=== PATIENT | female | born 1980 | race Caucasian/White ===

== ENCOUNTER 2016-09-19 19:38 | Emergency (ER) | payer OTHER ==
[2016-09-19] MEDS ORDERED: 0.9 % SODIUM CHLORIDE 1,000 ML IV ONE (20:24)
[2016-09-19] MEDS ORDERED: KETOROLAC TROMETHAMINE 30 MG/1ML VIAL IVP ONE (20:24)
--- NOTE | 2016-09-19 21:42 | ED Physician Documentation ---
Female Urogenital Problems - HISTORIAN Historian: patient - HPI Stated Complaint: poss uti Chief Complaint: Female Urogenital Problems Onset: days ago (yesterday) Further Comments: yes (36 year old female patient presents with complaint of dysuria and bilteral flank pain. Patient states she started cipro for a UTI on 09/14, second round. Reports episode last night in the shower of severe 10/10 pain of flank pain radiating around side to groin. Patinet concerned her UTI is getting worse.) - Vaginal Bleeding Sexual History: active Contraceptive: IUD - Associated Symptoms Urinary Symptoms: discomfort w/ urination, pain w/ urination - ROS CONST: none GI/: nausea. denies: vomiting CVS/RESP: none EYES/ENT: none NEURO/PSYCH: none MS/SKIN/LYMPH: none - PAST HX Past History: none Surgeries/Procedures: Allergies/Adverse Reactions: Allergies Allergy/AdvReac Type Severity Reaction Status Date / Time codeine Allergy Intermediate Rash Verified 09/19/16 20:04 Home Medications: Ambulatory Orders Medication Instructions Recorded Cetirizine HCl [Zyrtec] 10 mg PO D 09/19/16 Phenazopyridine HCl [Pyridium] 200 mg PO TID #6 tablet 09/19/16 - SOCIAL HX Smoking History: cigarettes - FAMILY HX Family History: none - VITAL SIGNS Vital Signs: Vital Signs Temp Pulse Resp BP Pulse Ox 98.2 F 79 14 99 09/19/16 19:39 09/19/16 19:39 09/19/16 19:39 09/19/16 19:39 - REVIEWED ASSESSMENTS Nursing Assessment Reviewed: Yes Vitals Reviewed: Yes Progress - Progress Progress: UA with 2+ hematuria, negative leukocytes and nitrates. CT renal protocol ordered. CT results reviewed with patient. Possibly passed renal calculi last night. Differential diagnosis, hematuria due to cystitis. Instructed to complete cipro and repeat UA when antibiotics are completed. ED Results Lab/Radiology - Orders Orders: ED Orders Category Date Time Status Place Saline Lock/IV NOW Care 09/19/16 20:[address] ABD & PELVIS W/O CON Stat Exams 09/19/16 Taken UA W/MICRO IF INDICATED Stat Lab 09/19/16 20:05 Ordered URINE HCG Stat Lab 09/19/16 20:24 Ordered 0.9 % Sodium Chloride [Normal Saline] 1,000 ml Med 09/19/16 20:24 Discontinued IV NOW Ketorolac Tromethamine [Toradol] Med 09/19/16 20:24 Discontinued 30 mg IVP NOW ONE Female Urogenital Problems - EXAM General Appearance: mild distress EENT: eye inspection normal, [place] Respiratory: no resp. distress, breath sounds nml CVS: reg rate & rhythm, heart sounds normal, equal pulses, no murmur, no gallop , PMI nml, no JVD, no friction rub, 24 Abdomen: soft, non-tender, no organomegaly, no distention, nml bowel sounds Back: non-tender, painless ROM, CVA tenderness (bilateral) Skin: color nml, no rash, warm,dry Extremities: non-tender, normal range of motion, no evidence of injury, no edema , J, STONE SAWYER Neuro: oriented X3, CN's nml as tested, motor nml, sensation nml, mood/affect nml Discharge Clincal Impression: Hematuria, Passed kidney stone Clincal Impression: (Ruled Out): Kidney stone Prescriptions: Phenazopyridine HCl [Pyridium] 200 mg PO TID #6 tablet Referrals: Krystal Mckeon MD [Primary Care Provider] - 2 Days Home Medications: Ambulatory Orders Cetirizine HCl [Zyrtec] 10 mg PO D 09/19/16 Phenazopyridine HCl [Pyridium] 200 mg PO TID #6 tablet 09/19/16 Condition: Stable Disposition: HOME, SELF-CARE Decision to Admit: NO Decision Time: 21:42
[2016-09-19 22:48] VITALS: BP 108/64
[2016-09-20 05:31] LABS: APPEARANCE,URINE CLOUDY (CLEAR); COLOR,URINE YELLOW (YELLOW); OCCULT BLOOD,URINE 2+ (NEGATIVE); UROBILINOGEN URINE 0.2 Eu (0.2-1.0)
--- NOTE | 2016-09-20 15:01 | Diagnostic Imaging Report ---
LOBO CARCAMO (GUILLAUME) - ER~ [facility] [address] [facility] [address] [place], [place]. [address] ~ ~ ~ ~ Report Submission Date: Sep 19, 2016 9:19:17 PM CDT Patient ~ Study Name: JAYLYN REYES ~ Date: Sep 19, 2016 9:05:30 PM CDT ~ Modality Type: CT\SR Gender: F ~ Description: CT ABD & PELVIS W/O CO : 82 ~ Institution: [facility] Physician: LOBO CARCAMO (GUILLAUME) - ER ~ ~ ~ ~ CT abdomen and pelvis without contrast CLINICAL HISTORY: ~ Flank pain and hematuria beginning on 09/08/2016. TECHNIQUE: ~ CT abdomen and pelvis is performed without oral or intravenous administration of contrast. ~Sagittal and coronal reconstructions are performed by the technologist. FINDINGS: ~ There is minimal dependent atelectasis in the lung bases. ~The lung bases are otherwise clear. ~The liver and spleen demonstrate normal attenuation without focal defect. ~Gallbladder is contracted. ~There is no pancreatic or adrenal abnormality. ~Kidneys are of normal size, shape and position. ~There is no evident renal or ureteral calculus and no hydronephrosis. ~Bladder is unremarkable. ~There is no free fluid in the pelvis or abdomen. ~Intrauterine device is demonstrated. ~There are bilateral ovarian follicles. ~There is no free fluid in the pelvis or abdomen. ~Appendix is visualized and is within normal limits. ~Structures related to the gastrointestinal tract are unremarkable. IMPRESSION: ~ Negative appendix. ~ No evident renal or ureteral calculus and no hydronephrosis. ~ Intrauterine device. ~ Contracted gallbladder. ~ Electronically signed on Sep 19, 2016 9:19:17 PM CDT by: Roderick BARRON
== END 2016-09-19 22:07 | disposition home or self-care (01) ==
LOC: ED 19:38
DX: N20.0 Calculus of kidney (principal)
CPT/HCPCS: 74176; 81002; 99283; J1885; J7030; S1016